=== PATIENT | male | born 2000 | race Caucasian/White ===

== ENCOUNTER 2022-07-06 07:16 | Emergency (ER) | payer OTHER ==
[2022-07-06 07:30] VITALS: BP 129/79; PULSE 95; RESP 16; BMI 23.5
[2022-07-06] MEDS ORDERED: KETOROLAC TROMETHAMINE 15 MG/ML VIAL ONE (07:45)
[2022-07-06 07:52] VITALS: TEMP 99.8
[2022-07-06] MEDS ORDERED: KETOROLAC TROMETHAMINE 30 MG/1 ML VIAL IVPUSH ONE (08:02)
[2022-07-06] MEDS ORDERED: ACETAMINOPHEN 500 MG TABLET (FP) PO ONE (09:00)
[2022-07-06] MEDS ORDERED: ACETAMINOPHEN 500 MG TABLET (FP) ONE (09:02)
== END 2022-07-06 10:18 | disposition home or self-care (01) ==
LOC: FER 07:16
PROC: 3E0333Z Introduction of Anti-inflammatory into Peripheral Vein, Percutaneous Approach (ICD-10-PCS; principal; 2022-07-06)
DX: M54.42 Lumbago with sciatica, left side (principal); M54.41 Lumbago with sciatica, right side; G44.219 Episodic tension-type headache, not intractable; G89.29 Other chronic pain
CPT/HCPCS: 96374; 99284-25